=== PATIENT | male | born 1995 | race African-American/Black ===

== ENCOUNTER 2019-03-09 00:06 | Emergency (ER) | payer SELFPAY ==
[2019-03-09 00:20] VITALS: BP 132/74; PULSE 88; TEMP 98.3; BMI 19.3
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
[2019-03-09] MEDS ORDERED: ACETAMINOPHEN 500 MG TABLET (FP) ONE (01:02)
[2019-03-09] MEDS ORDERED: ACETAMINOPHEN 500 MG TABLET (FP) PO ONE (01:05)
[2019-03-09] MEDS ORDERED: DIPHTH,PERTUSS(ACELL),TET 0.5 ML DISP.SYRIN IM ONE ×2 (01:07→01:59)
[2019-03-09] MEDS ORDERED: BACITRACIN 15 GM TUBE TOPICAL OINTMENT TP ONE (01:11)
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
[2019-03-09] MEDS ORDERED: BACITRACIN 15 GM TUBE TOPICAL OINTMENT ONE (01:59)
== END 2019-03-09 02:22 | disposition home or self-care (01) ==
LOC: JER 00:06
PROC: 3E0234Z Introduction of Serum, Toxoid and Vaccine into Muscle, Percutaneous Approach (ICD-10-PCS; principal; 2019-03-09)
DX: S00.83XA Contusion of other part of head, initial encounter (principal); Y04.2XXA Assault by strike against or bumped into by another person, initial encounter; Y93.89 Activity, other specified; Y92.038 Other place in apartment as the place of occurrence of the external cause; Y99.8 Other external cause status; Y07.59 Other non-family member, perpetrator of maltreatment and neglect
CPT/HCPCS: 70486-TC; 90715; 99281-25